=== PATIENT | male | born 1945 | race American Indian/Alaskan Native ===

== ENCOUNTER 2018-05-10 08:29 | Outpatient (CLI) | payer MEDICARE ==
--- NOTE | 2018-05-10 09:09 | Ultrasound Report ---
Limited abdominal ultrasound: Incidentally palpable nodule in the left lower abdominal wall over the past couple of weeks. Denies known trauma. Imaging over the area of concern demonstrates an area of slightly inhomogeneous hyper echogenicity with poor contour definition. Located between the skin in the anterior abdominal wall with an approximate measurement of 7.5mm. high x 19 mm wide. No obvious internal blood flow with color imaging. Impression: Subcutaneous mass. Possibilities would include lipoma and hematoma with low likelihood of a malignancy. Recommendation: Clinical followup. Any further evaluation at this time should be based in your concern.
== END 2018-05-10 08:30 | disposition home or self-care (01) ==
LOC: SPVWC 08:29
PROVIDERS: ATTEND Internal Medicine Gastroenterology
DX: R19.00 Intra-abdominal and pelvic swelling, mass and lump, unspecified site (principal)
CPT/HCPCS: 76705